=== PATIENT | female | born 1985 | race Caucasian/White ===

== ENCOUNTER 2018-07-21 15:55 | Inpatient (IN) ==
[2018-07-21] MEDS ORDERED: 0.9 % Sodium Chloride 1,000 ML IVC ONE (16:33)
[2018-07-21] MEDS ORDERED: Isovue-370 500 ML BOTTLE IVP ONE (16:35)
--- NOTE | 2018-07-21 16:37 | Emergency Department Note ---
Disposition Clinical Impression: Facial abscess, Phlegmon, Thyroid nodule Cellulitis Qualifiers: Site of cellulitis: face Qualified Code(s): L03.211 - Cellulitis of face Disposition: Admitted As Inpatient Referrals: Joselito Petit MD [Primary Care Provider] - Forms: ED Satisfaction Letter General Adult HPI - General Chief complaint: ED Skin/Abscess/Foreign Body Stated complaint: Facial Abscess Time Seen by Provider: 07/21/18 16:25 Source: patient Nursing Notes Reviewed: Yes Vital Signs Reviewed: Yes - History of Present Illness HPI Narrative: Patient is a 32-year-old female with past medical history including abscess and MRSA presenting with chief complaint of worsening right facial abscess. The patient states 5 days ago, she developed an abscess on the right face that is lateral to the right eye and does not involve the eye. She states she went to the emergency department the following day. She was prescribed Bactrim which she filled on Saturday. She had an incision and drainage. Over the weekend, despite the antibiotic or compresses, she describes worsening swelling that is now involving her eye. She complains of intermittent right visual loss. She states she feels like her neck also feels swollen and throat tightening up. She denies chest pain, shortness of breath, abdominal pain, does state she has had several episodes of nausea and vomiting. She went to her primary care physician yesterday had a repeat incision and drainage. She is presenting to the emergency department with worsening symptoms. Pain Scale: 7 - Related Data Home Medications Medication Instructions Recorded Confirmed traZODone [TraZODone] 50 mg PO PRN PRN 07/17/18 07/17/18 Previous Rx's Medication Instructions Recorded Sulfamethoxazole/Trimeth DS 1 each PO BID #20 tablet 07/17/18 [Bactrim DS] Allergies Allergy/AdvReac Type Severity Reaction Status Date / Time No Known Allergies Allergy Verified 06/23/18 12:40 All systems ED: reviewed and negative except as stated. Review of Systems: As Per HPI Constitutional: Denies: fever, chills Cardiovascular: Denies: chest pain, palpitations Respiratory: Denies: cough, dyspnea Gastrointestinal: Reports: nausea, vomiting. Denies: abdominal pain, diarrhea Genitourinary: Denies: dysuria Integumentary: Reports: other (abscess) Neurological: Denies: headache, weakness Past Medical History - Past Medical History Attestation: Yes The following information was validated with the patient. 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 - Social History Smoking Status: Never smoker Smokeless Tobacco Status: No Alcohol use: Reports: none Drug use: Reports: none Physical Exam - General Limitations: no limitations General appearance: alert, in no apparent distress - Head Head exam: atraumatic, normocephalic, normal inspection - Eye Eye exam: Present: normal appearance, PERRL, EOMI - ENT ENT exam: normal oropharynx, mucous membranes moist - Neck Neck exam: Present: normal inspection, trachea midline, other (Tenderness in the right submandibular region) - Chest Chest inspection: Present: normal inspection, symmetric chest wall rise - Respiratory Respiratory exam: Present: normal lung sounds bilaterally. Absent: respiratory distress, wheezes - Cardiovascular Cardiovascular exam: Present: normal rhythm, tachycardia, normal heart sounds - Abdominal Exam Abdominal exam: Present: soft, Non-Tender. Absent: distention, guarding - Extremities Exam Extremities exam: Present: normal inspection, normal capillary refill - Neurological Exam Neurological exam: Present: alert, oriented X3 - Psychiatric Psychiatric exam: Present: normal affect, normal mood - Skin Skin exam: Present: warm, other (3x3cm abscess lateral to the right eye with mild swelling of right eye, purulent drainage) Course Vital Signs Temperature 98.5 F 07/21/18 16:15 Pulse Rate 135 07/21/18 16:15 Respiratory Rate 18 07/21/18 16:15 Blood Pressure 93/62 07/21/18 16:15 O2 Sat by Pulse Oximetry 100 07/21/18 16:15 Temperature 98.5 F 07/21/18 16:15 Pulse Rate 87 07/21/18 18:26 Respiratory Rate 16 07/21/18 18:26 Blood Pressure 114/79 07/21/18 18:26 O2 Sat by Pulse Oximetry 100 07/21/18 18:26 Oxygen Delivery Oxygen Delivery Room Air Medical Decision Making - [facility] Narrative Medical decision making narrative: Patient is presenting with sinus tachycardia. She has a right facial abscess with intermittent right visual loss. She feels like her face is more swollen today. She had an IND of it twice in the past 5 days. Patient does not have visual loss at this time. She complains of painful extraocular movement. However they are intact. We will obtain CT orbits and CT soft tissue neck with contrast to further evaluate the extent of the abscess. We will obtain blood cultures, lactate, start the patient on IV fluids and vancomycin. basic lab work will also be obtained. 18:[address] with IV contrast is pending at this time. Patient will require admission for failing outpatient treatment. She will require IV antibiotics and possible ENT consult for incision and drainage of the facial abscess. 18:35 CT results reviewed. Patient has superficial cellulitis and subcutaneous overlying the right zygomatic arch. There is no discrete abscess. Patient also has an incidental 1.7 cm left thyroid nodule. Radiology recommending nonemergent follow-up thyroid ultrasound to further evaluate. There is no evidence of orbital abscess, septal cellulitis. Hospitalist has been consulted at this time for admission for failed outpatient treatment of cellulitis and abscess. As this is superficial infection, will not add other IV antibiotics at this time. 18:50 D/w Hospitalist who accepts admission - Medical Records Medical records reviewed: Yes I reviewed the patient's medical records. - Lab Data Lab results reviewed: Yes I reviewed the patient's lab results. Result diagrams: 07/21/18 16:47 07/21/18 16:47 Lab Results 07/21/18 07/21/18 07/21/18 Range/Units 16:47 16:47 16:47 WBC 5.3 (4.3-11.1) K/mcL RBC 4.44 (3.82-4.97) M/mcL Hgb 12.5 (11.5-15.4) g/dL Hct 39.5 (35.3-44.9) % MCV 89.0 (83.0-100.0) fL MCH 28.2 (28.0-33.3) pg MCHC 31.6 (31.6-35.5) g/dL RDW 12.9 (11.5-14.5) % Plt Count 192 (140-400) K/mcL MPV 9.6 (9.4-12.4) fL Immature Gran % 0.2 (0-4) % Seg Neutrophils % 79.9 % Lymphocytes % 10.7 % Monocytes % 7.8 % Eosinophils % 1.0 % Basophils % 0.4 % Neutrophils # 4.2 (1.6-8.9) K/mcL Lymphocytes # 0.6 (0.6-4.6) K/mcL Monocytes # 0.4 (0.0-1.3) K/mcL Eosinophils # 0.1 (0.0-0.6) K/mcL Basophils # 0.0 (0.0-0.2) K/mcL Sodium 139 (136-145) mEq/L Potassium 3.6 (3.5-5.1) mEq/L Chloride 102 (98-107) mEq/L Carbon Dioxide 24 (23-29) mEq/L BUN 8 (6-20) mg/dL Creatinine 1.01 (0.60-1.20) mg/dL Est GFR ( Amer) > 60 (> 60) Est GFR (Non-Af Amer) > 60 (> 60) BUN/Creatinine Ratio 8 (6-26) Glucose 86 (70-105) mg/dL Calculated Osmolality 286 (280-300) Lactic Acid 1.0 (0.5-2.2) mmol/L Calcium 9.4 (8.6-10.3) mg/dL Magnesium 1.7 (1.6-2.6) mg/dL Total Bilirubin 0.5 (0.3-1.0) mg/dL Direct Bilirubin 0.1 (0.0-0.2) mg/dL Indirect Bilirubin 0.4 (0.0-1.2) mg/dL AST 25 (13-39) Units/L ALT 26 (7-52) Units/L Alkaline Phosphatase 114 H (34-104) Units/L Troponin I < 0.03 (< 0.04) ng/mL Serum Total Protein 7.0 (6.4-8.9) g/dL Albumin 4.1 (3.5-5.7) g/dL Globulin 2.9 (2.4-3.5) g/dL Albumin/Globulin Ratio 1.4 (1.1-2.2) - Radiology Data Radiology results reviewed: Yes I reviewed the patient's radiology results. Soft Tissue Neck CT 07/21/18 16:35 IMPRESSION: 1. Findings of superficial cellulitis and subcutaneous phlegmon overlying the right zygomatic arch. No discrete abscess. 2. 1.7 cm left thyroid nodule. Nonemergent follow-up thyroid ultrasound is recommended for further evaluation per guidelines below. RECOMMENDATIONS: 1.7 cm incidental thyroid nodule Recommend thyroid US. Reference: J Am Sandip Radiol. 2015 May;12(2): 143-50 D/ / Ean Smith / Ean Smith Interpreting Provider: Ean Smith - EKG Data EKG #1 EKG attestation: Yes I reviewed and interpreted this EKG. EKG results narrative: EKG obtained at 1632 shows sinus tachycardia with heart rate 112, QRS duration 86, KS interval 186, QTC of 436. No ST elevation or depression. T-wave inversion in lead 3. Compared to old EKG from 08/04/2016 which shows no acute changes at that time.
--- NOTE | 2018-07-21 16:45 | Emergency Department Note ---
Disposition Clinical Impression: Facial abscess, Phlegmon, Thyroid nodule Cellulitis Qualifiers: Site of cellulitis: face Qualified Code(s): L03.211 - Cellulitis of face Disposition: Admitted As Inpatient Condition: Fair Referrals: Joselito Petit MD [Primary Care Provider] - Forms: ED Satisfaction Letter General Adult HPI - General Chief complaint: ED Skin/Abscess/Foreign Body Stated complaint: Facial Abscess Time Seen by Provider: 07/21/18 16:25 Source: patient Nursing Notes Reviewed: Yes Vital Signs Reviewed: Yes - History of Present Illness Pain Scale: 7 - Related Data Home Medications Medication Instructions Recorded Confirmed traZODone [TraZODone] 50 mg PO PRN PRN 07/17/18 07/17/18 Previous Rx's Medication Instructions Recorded Sulfamethoxazole/Trimeth DS 1 each PO BID #20 tablet 07/17/18 [Bactrim DS] Allergies Allergy/AdvReac Type Severity Reaction Status Date / Time No Known Allergies Allergy Verified 06/23/18 12:40 Past Medical History - Past Medical History Medical history: Reports: GERD, migraine, renal disease Surgical history: Reports: other 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 history: Reports: anxiety, depression 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 , 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 - Social History Smoking Status: Never smoker Smokeless Tobacco Status: No Alcohol use: Reports: none Drug use: Reports: none Physical Exam - General General appearance: alert, in no apparent distress Course Vital Signs Temperature 98.5 F 07/21/18 16:15 Pulse Rate 135 07/21/18 16:15 Respiratory Rate 18 07/21/18 16:15 Blood Pressure 93/62 07/21/18 16:15 O2 Sat by Pulse Oximetry 100 07/21/18 16:15 Temperature 98.5 F 07/21/18 16:15 Pulse Rate 87 07/21/18 18:26 Respiratory Rate 16 07/21/18 18:26 Blood Pressure 114/79 07/21/18 18:26 O2 Sat by Pulse Oximetry 100 07/21/18 18:26 Oxygen Delivery Oxygen Delivery Room Air Medical Decision Making - MDM Narrative Medical decision making narrative: Soft Tissue Neck CT 07/21/18 16:35 IMPRESSION: 1. Findings of superficial cellulitis and subcutaneous phlegmon overlying the right zygomatic arch. No discrete abscess. 2. 1.7 cm left thyroid nodule. Nonemergent follow-up thyroid ultrasound is recommended for further evaluation per guidelines below. RECOMMENDATIONS: 1.7 cm incidental thyroid nodule Recommend thyroid US. Reference: J Am Sandip Radiol. 2015 May;12(2): 143-50 D/ / Ean Smith / Ean Smith Interpreting Provider: Ean Smith 1836 hrs.: Patient's CT is back she still cellulitis but no orbital cellulitis or negative and bring her into the hospital so she has failed outpatient treatment start her on vancomycin which she has got running here and then she also has a nodule on her thyroid may need ultrasound while she is inpatient. 1850 hrs.: Hospitalist agreed to bring the patient into the hospital she has get her IV vancomycin running a patient's agreement with staying. - Lab Data Result diagrams: 07/21/18 16:47 07/21/18 16:47 Lab Results 07/21/18 07/21/18 07/21/18 Range/Units 16:47 16:47 16:47 WBC 5.3 (4.3-11.1) K/mcL RBC 4.44 (3.82-4.97) M/mcL Hgb 12.5 (11.5-15.4) g/dL Hct 39.5 (35.3-44.9) % MCV 89.0 (83.0-100.0) fL MCH 28.2 (28.0-33.3) pg MCHC 31.6 (31.6-35.5) g/dL RDW 12.9 (11.5-14.5) % Plt Count 192 (140-400) K/mcL MPV 9.6 (9.4-12.4) fL Immature Gran % 0.2 (0-4) % Seg Neutrophils % 79.9 % Lymphocytes % 10.7 % Monocytes % 7.8 % Eosinophils % 1.0 % Basophils % 0.4 % Neutrophils # 4.2 (1.6-8.9) K/mcL Lymphocytes # 0.6 (0.6-4.6) K/mcL Monocytes # 0.4 (0.0-1.3) K/mcL Eosinophils # 0.1 (0.0-0.6) K/mcL Basophils # 0.0 (0.0-0.2) K/mcL Sodium 139 (136-145) mEq/L Potassium 3.6 (3.5-5.1) mEq/L Chloride 102 (98-107) mEq/L Carbon Dioxide 24 (23-29) mEq/L BUN 8 (6-20) mg/dL Creatinine 1.01 (0.60-1.20) mg/dL Est GFR ( Amer) > 60 (> 60) Est GFR (Non-Af Amer) > 60 (> 60) BUN/Creatinine Ratio 8 (6-26) Glucose 86 (70-105) mg/dL Calculated Osmolality 286 (280-300) Lactic Acid 1.0 (0.5-2.2) mmol/L Calcium 9.4 (8.6-10.3) mg/dL Magnesium 1.7 (1.6-2.6) mg/dL Total Bilirubin 0.5 (0.3-1.0) mg/dL Direct Bilirubin 0.1 (0.0-0.2) mg/dL Indirect Bilirubin 0.4 (0.0-1.2) mg/dL AST 25 (13-39) Units/L ALT 26 (7-52) Units/L Alkaline Phosphatase 114 H (34-104) Units/L Troponin I < 0.03 (< 0.04) ng/mL Serum Total Protein 7.0 (6.4-8.9) g/dL Albumin 4.1 (3.5-5.7) g/dL Globulin 2.9 (2.4-3.5) g/dL Albumin/Globulin Ratio 1.4 (1.1-2.2) Attestation Statement - Attestation Attestation: This documentation is done with the assistance of Dragon dictation. Despite efforts made to ensure accuracy, there may be inaccuracies in scale clerk or spelling and typographical errors. I examined this patient and my medical decision-making was reviewed with the Resident Physician. I agree with the documented findings, disposition and treatment plan as described except to the extent set forth below. Patient seen and evaluated today by Dr. Gonzales and myself, I agree with her evaluation and management plan, I supervised the care the patient's stay. Patient presents wi th an abscess to the right side of her face this is lateral to the orbit does not involve the eye itself. She had an I&D and she has been on Bactrim. She has not missed any doses but she is getting redness underneath her right eye with pain with movement. She is also feels like she is getting swelling going down the right side of her neck. She has a normal airway she has no drooling or stridor. Supple neck no meningeal signs. Were negative CT of her orbit and soft tissues of the neck started on vancomycin labs and then she will most likely need admission.
[2018-07-21 17:12] LABS: Basophils % 0.4 %; Eosinophils # 0.1 K/mcL (0.0-0.6); Hematocrit 39.5 % (35.3-44.9); Hemoglobin 12.5 g/dL (11.5-15.4); Immature Granulocytes % 0.2 % (0-4); Lymphocytes # 0.6 K/mcL (0.6-4.6); Lymphocytes % 10.7 %; Mean Corpuscular HGB Conc 31.6 g/dL (31.6-35.5); Mean Corpuscular Hemoglobin 28.2 pg (28.0-33.3); Mean Platelet Volume 9.6 fL (9.4-12.4); Monocytes # 0.4 K/mcL (0.0-1.3); Monocytes % 7.8 %; Neutrophils # 4.2 K/mcL (1.6-8.9); Platelet Count 192 K/mcL (140-400); Red Blood Count 4.44 M/mcL (3.82-4.97); Red Cell Distribution Width 12.9 % (11.5-14.5); Segmented Neutrophils % 79.9 %
[2018-07-21 17:24] LABS: Alanine Aminotransferase 26 Units/L (7-52); Albumin 4.1 g/dL (3.5-5.7); Albumin/Globulin Ratio 1.4 (1.1-2.2); Alkaline Phosphatase 114 Units/L (34-104); Aspartate Amino Transferase 25 Units/L (13-39); BUN/Creatinine Ratio 8 (6-26); Bilirubin,Direct 0.1 mg/dL (0.0-0.2); Bilirubin,Indirect 0.4 mg/dL (0.0-1.2); Bilirubin,Total 0.5 mg/dL (0.3-1.0); Blood Urea Nitrogen 8 mg/dL (6-20); Calcium 9.4 mg/dL (8.6-10.3); Carbon Dioxide 24 mEq/L (23-29); Chloride 102 mEq/L (98-107); Globulin 2.9 g/dL (2.4-3.5); Glucose 86 mg/dL (70-105); Magnesium 1.7 mg/dL (1.6-2.6); Osmolality,Calculated 286 (280-300); Potassium 3.6 mEq/L (3.5-5.1); Sodium 139 mEq/L (136-145); Troponin I < 0.03 ng/mL (< 0.04); eGFR For Non-African Americans > 60 (> 60)
[2018-07-21 19:13] LABS: Bilirubin,Urine Negative (Negative); Blood,Urine Negative (Negative); Clarity,Urine Clear (Clear); Color,Urine Yellow (Yellow); Glucose,Urine (UA) Normal (Normal); Ketones,Urine Negative (Negative); Leukocyte Esterase,Urine Negative (Negative); Nitrite,Urine Negative (Negative); Protein,Urine Negative (Neg-Trace); Specific Gravity,Urine 1.016 (1.010-1.025); Urobilinogen,Urine Normal (Normal)
[2018-07-21] MEDS ORDERED: Ondansetron 4 MG/2 ML VIAL IVP PRN (22:23)
[2018-07-21] MEDS ORDERED: Naloxone 0.4 MG/ML INJ IVP PRN (22:23)
[2018-07-21] MEDS ORDERED: traZODone 50 MG TABLET PO PRN (22:28)
--- NOTE | 2018-07-21 22:41 | Internal Med History&Physical ---
Date of Encounter: 07/21/18 Time of Encounter: 20:40 Internal Medicine - H&P: HPI Chief complaint: facial abscess/cellulitis Admitted From: Emergency Dept Plans for Post Hospital Care: Home History of present illness: Ms. Castro is a 32 year old female who presents to the ER today for the third time in the last several days for concerns of right-sided facial cellulitis and abscess. She was treated conservatively with oral Bactrim and incision and drainage on the second ER visit. Since then, however, symptoms worsened and she had worsening cellulitis as well as swelling of her right eyelid. Workup in ER revealed patient to have a draining abscess on her right cheek area. CT of the neck/soft tissues was obtained, which revealed a phlegmon but not a confirmed abscess. Irregardless, with the drainage, she was feeling better and her faical edema has subsided. Because of failed outpatient treatment, she was admitted to hospitalist service. Upon my assessment of the patient, she and her family confirm the above history. She has a prior history of MRSA skin abscesses about 5 years ago. Regarding this episode, she states she had a pimple on her right cheek that she and her tried to pop the other day. This subsequently became infected over the next 24 hours leading to facial cellulitis and then suspected abscess. She has had low-grade fevers at home, but she denies any chills or night sweats. She denies any cough, sore throat, vomiting, or diarrhea. She did have swelling of her right eyelid earlier today but it is improved and mostly resolved. She denies any vision changes or any sinus congestion. Past Med Surg Social Fam HX - Past Medical History Attestation: Yes The following information was validated with the patient. Source: patient, old records reviewed, obtained from family Medical history: GERD, migraine, renal disease Additional medical history: Pt reports kidney failure in 2014 Psychiatric history: anxiety, depression - Past Surgical History Surgical History: other Additional surgical history: tubal ligation - Social History Smoking Status: Never smoker Smokeless Tobacco Status: No Alcohol use: none Drug use: none Current living situation: Home, With Family Activity Level: Independent ambulation Recent Out of Country Travel Within the Last 8 Weeks: No - Family History Mother Living Status: Still Living Hx Family Cardiac Disorders: Yes Hx Family Respiratory Disorders: No Hx Family Cancer: Yes Hx Family GI Disorders: No Hx Family Endocrine Disorder: Yes Hx Family Neuromuscular Disorders: No Hx Family Neurologic Disorders: No Hx Family HEENT Disorders: No Hx Family Autoimmune Disorders: No Internal Medicine - H&P: Meds Sulfamethoxazole/Trimeth DS [Bactrim DS] 1 each PO BID #20 tablet 07/17/18 [Rx] traZODone [TraZODone] 150 mg PO PRN PRN 07/17/18 [History] CarBAMazepine [Equetro] 400 mg PO BID 07/21/18 [History] Ibuprofen 800 mg PO PRN PRN MDD TID 07/21/18 [History] Pantoprazole 40 mg PO DAILY 07/21/18 [History] Allergy/AdvReac Type Severity Reaction Status Date / Time No Known Allergies Allergy Verified 06/23/18 12:40 - Constitutional Constitutional: fever(s), no chills, no night sweats - EENT Eyes: no blurry vision, no change in vision, no diplopia, no discharge, no photophobia Ears: no ear pain, no tinnitus Nose, mouth and throat: no nasal congestion, no sinus pain, no sinus pressure, no sore throat - Cardiovascular Cardiovascular ROS IM: no chest pain, no dyspnea - Respiratory Respiratory: no cough, no hemoptysis, no chest congestion, no excessive phlegm production - Gastrointestinal Gastrointestinal: no abdominal pain, no diarrhea, no hematemesis, no hematochezia, no melena, no vomiting - Genitourinary Genitourinary: no dysuria, no flank pain, no hematuria - Musculoskeletal Musculoskeletal ROS IM: no arthralgias, no back pain - Integumentary Integumentary IM: sores (right cheek area concerning for abscess) - Neurological Neurological ROS: no dizziness, no focal weakness, no frequent falls, no headache(s) - Psychiatric Psychiatric: anxiety, no depression - Endocrine Endocrine IM: no polydipsia, no polyuria - Allergic/Immunologic Allergic/Immunologic: no wheezing, no GI upset with certain foods - Constitutional Vitals: Temp Pulse Resp BP Pulse Ox 98.5 F 87 16 119/79 100 07/21/18 16:15 07/21/18 18:26 07/21/18 21:01 07/21/18 21:01 07/21/18 18:26 General appearance: Present: cooperative, mild distress, A&O X 3, pleasant, answers questions appropriately Exam: see below - Head Head exam: Present: atraumatic, normal inspection - Eye Eye exam: Present: EOMI, PERRL. Absent: scleral icterus Pupils: Present: normal accommodation - ENT ENT exam: Present: mucous membranes dry, normal exam, normal oropharynx - Neck Neck exam general surgery: Present: full ROM, supple, trachea midline. Absent: lymphadenopathy, tenderness, nuchal rigidity, thyromegaly - Respiratory Respiratory exam: Present: CTAB. Absent: chest wall tenderness, rales, rhonchi, wheezes - Cardiovascular Cardiovascular exam: Present: RRR, +S1, +S2. Absent: diastolic murmur, systolic murmur - GI/Abdominal GI/Abdominal exam: Present: normal bowel sounds, soft. Absent: guarding, hepatomegaly, mass, rebound, splenomegaly, tenderness - Extremities Exam Extremities exam: Present: full ROM, normal capillary refill, warm, radial pulses palpable and symmetrical. Absent: calf tenderness, pedal edema, tenderness - Back Exam Back exam: Present: normal inspection. Absent: CVA tenderness (L), CVA tenderness (R) - Neurological Exam Neurological exam: Present: alert, CN II-XII intact, oriented X3, no focal deficits, strengths equal and symetr throughout - Psychiatric Psychiatric exam: Present: normal affect, normal mood - Skin Skin exam: Present: dry, intact, warm Additional comments: draining abscess/phlegmon along right cheek area on the lateral aspect with mild surrounding redness/edema; both eyelids and periorbital areas normal and without redness/edema Internal Med - H&P Results - Labs CBC & Chem 7: 07/21/18 16:47 07/21/18 16:47 Labs: Short CBC 07/21/18 Range/Units 16:47 WBC 5.3 (4.3-11.1) K/mcL Hgb 12.5 (11.5-15.4) g/dL Hct 39.5 (35.3-44.9) % Plt Count 192 (140-400) K/mcL Neutrophils # 4.2 (1.6-8.9) K/mcL BMP 07/21/18 16:47 Sodium 139 Potassium 3.6 Chloride 102 Carbon Dioxide 24 BUN 8 Creatinine 1.01 Glucose 86 Calcium 9.4 Cardiac Enzymes 04/22/19 Range/Units 16:47 Troponin I < 0.03 (< 0.04) ng/mL Liver Function 07/21/18 Range/Units 16:47 Total Bilirubin 0.5 (0.3-1.0) mg/dL Direct Bilirubin 0.1 (0.0-0.2) mg/dL AST 25 (13-39) Units/L ALT 26 (7-52) Units/L Alkaline Phosphatase 114 H (34-104) Units/L Albumin 4.1 (3.5-5.7) g/dL Urine 07/21/18 Range/Units 19:03 Urine Color Yellow (Yellow) Urine Clarity Clear (Clear) Urine pH 6.0 (5.0-8.0) pH Units Ur Specific [place] 1.016 (1.010-1.025) Urine Protein Negative (Neg-Trace) mg/dL Urine Glucose (UA) Normal (Normal) mg/dL - Impressions ITS Impressions Soft Tissue Neck CT 07/21/18 16:35 IMPRESSION: 1. Findings of superficial cellulitis and subcutaneous phlegmon overlying the right zygomatic arch. No discrete abscess. 2. 1.7 cm left thyroid nodule. Nonemergent follow-up thyroid ultrasound is recommended for further evaluation per guidelines below. RECOMMENDATIONS: 1.7 cm incidental thyroid nodule Recommend thyroid US. Reference: J Am Sandip Radiol. 2015 May;12(2): 143-50 D/ / Ean Smith / Ean Smith Interpreting Provider: Ean Smith - Diagnostic Studies Other Images Status: image reviewed by me (CT soft tissues neck -- viewed images and report) - Assessment and Plan (1) Abscess of face Current Visit: Yes Status: Acute Assessment and plan: 1. I asked CORE STACKER to obtain and send culture of draining abscess. 2. Will order IV Vancomycin and Zosyn to cover MRSA and typical skin jai. 3. Contact precautions. 4. De-escalate antibiotics when culture results obtained. 5. Vancomycin dosing per pharmacy. 6. IVF hydration to protect kidney function given prior history of [place] with Vancomycin. 7. Patient failed outpatient conservative treatment with Bactrim. 8. May need ENT consult if fails to improve. (2) Cellulitis Current Visit: Yes Status: Acute Assessment and plan: 1. IV antibiotics as above. 2. Monitor clinically. Qualifiers: Site of cellulitis: face Qualified Code(s): L03.211 - Cellulitis of face (3) Thyroid nodule Current Visit: Yes Status: Acute Assessment and plan: 1. Will order thyroid ultrasound and TFT's. (4) DVT prophylaxis Current Visit: Yes Status: Acute Assessment and plan: 1. Heparin SQ.
[2018-07-21] MEDS ORDERED: Ibuprofen 400 MG TABLET PO PRN (22:55)
[2018-07-21] MEDS: 0.9 % Sodium Chloride w KCl 20 MEQ/1,000 ML MLS IVC SCH (23:37)
[2018-07-21] MEDS: Piperacillin/Tazobactam 3.375 GM in 0.9 % Sodium Chloride Mini Bag 100 ML IVPB SCH (23:38)
[2018-07-21] MEDS: Acetaminophen 325 MG TABLET PO PRN (23:40)
[2018-07-22] MEDS: Acetaminophen 325 MG TABLET PO PRN (05:22)
[2018-07-22] MEDS: *HR* Heparin 5,000 UNIT/ML VIAL SQ SCH ×2 (05:23→18:01)
[2018-07-22] MEDS ORDERED: 0.9 % Sodium Chloride 500 ML IVC ONE (05:26)
[2018-07-22 06:43] LABS: Basophils % 0.6 %; Eosinophils % 0.6 %; Hematocrit 32.6 % (35.3-44.9); Immature Granulocytes % 0.3 % (0-4); Lymphocytes # 0.6 K/mcL (0.6-4.6); Lymphocytes % 18.3 %; Mean Corpuscular HGB Conc 31.3 g/dL (31.6-35.5); Mean Corpuscular Hemoglobin 27.6 pg (28.0-33.3); Mean Corpuscular Volume 88.1 fL (83.0-100.0); Mean Platelet Volume 9.9 fL (9.4-12.4); Monocytes # 0.5 K/mcL (0.0-1.3); Monocytes % 13.9 %; Neutrophils # 2.3 K/mcL (1.6-8.9); Platelet Count 150 K/mcL (140-400); Segmented Neutrophils % 66.3 %
[2018-07-22 06:44] LABS: Hemoglobin 10.2 g/dL (11.5-15.4)
[2018-07-22 07:03] LABS: Alanine Aminotransferase 19 Units/L (7-52); Albumin 3.2 g/dL (3.5-5.7); Albumin/Globulin Ratio 1.3 (1.1-2.2); Alkaline Phosphatase 98 Units/L (34-104); Aspartate Amino Transferase 17 Units/L (13-39); BUN/Creatinine Ratio 8 (6-26); Bilirubin,Total 0.3 mg/dL (0.3-1.0); Blood Urea Nitrogen 7 mg/dL (6-20); Calcium 7.9 mg/dL (8.6-10.3); Carbon Dioxide 22 mEq/L (23-29); Chloride 110 mEq/L (98-107); Globulin 2.4 g/dL (2.4-3.5); Glucose 114 mg/dL (70-105); Osmolality,Calculated 283 (280-300); Potassium 3.8 mEq/L (3.5-5.1); Sodium 137 mEq/L (136-145); Total Protein 5.6 g/dL (6.4-8.9); eGFR For Non-African Americans > 60 (> 60)
[2018-07-22] MEDS: 0.9 % Sodium Chloride w KCl 20 MEQ/1,000 ML MLS IVC SCH (08:32)
[2018-07-22] MEDS: Piperacillin/Tazobactam 3.375 GM in 0.9 % Sodium Chloride Mini Bag 100 ML IVPB SCH ×3 (08:33→23:43)
[2018-07-22] MEDS: carBAMazepine 200 MG TABLET PO SCH ×2 (08:35→19:53)
[2018-07-22] MEDS ORDERED: traZODone 50 MG TABLET PO PRN (13:23)
--- NOTE | 2018-07-22 14:28 | Internal Med Progress Note ---
Hospitalist Progress Note - Encounter Date of Encounter: 07/22/18 Time of Encounter: 14:26 - Subjective Interval History: Patient lying comfortably in bed. Better facial pain and swelling. Review the lab with trending down white count-pancytopenia like picture. Family at bedside. Better blood pressure Denies fever chills nausea vomiting headache dizziness chest pain shortness of breath abdominal pain diarrhea urinary complaint - Exam Vitals: Temp Pulse Resp BP Pulse Ox 97.8 F 65 16 112/73 99 07/22/18 10:30 07/22/18 10:30 07/22/18 10:30 07/22/18 10:30 07/22/18 10:30 Exam: General appearance: No acute distress, A&O X 3 Head exam: Atraumatic Eye exam: EOMI, PERRLA ENT exam: Moist oral mucosa Neck nontender, supple Respiratory exam: Clear to auscultation bilaterally Cardiovascular exam: Regular rate and rhythm, no systolic murmur Abdominal exam: Soft, nontender, nondistended, positive bowel sounds Extremities exam: No calf tenderness, no pedal edema Present: Skin-: A small almost 0.5 cm round opening with no active draining pus /with s urrounding erythema without fluctuance, over the right cheek area on the lateral aspect. Right upper eyelid appear puffy but periorbitally area normal and without redness edema. Neurological exam: Alert, awake, oriented 3, CN II-XII intact, no focal deficits. No facial droop. Normal speech. - Assessment and Plan (1) Abscess of face Current Visit: Yes Status: Acute Assessment and Plan: Failed outpatient treatment with Bactrim. Started IV vancomycin and Zosyn in the ER-will continue for now. Wound culture and blood culture with no growth yet. Clinically better with trending down White count with no fever overnight. Patient is improving therefore will continue IV antibiotic. If any concern then will consult ENT specialist. Continue contact precaution. (2) Cellulitis Current Visit: Yes Status: Acute Assessment and Plan: As mentioned above (3) Thyroid nodule Current Visit: Yes Status: Acute Assessment and Plan: Incidental finding on CT neck. Ordered thyroid ultrasound and TFT's- pending (4) DVT prophylaxis Current Visit: Yes Status: Acute Assessment and Plan: 1. Heparin SQ. - Time Spent with Patient Total time spent is greater than 50% in coordination of care (as documented) at patient's floor/unit and/or counseling patient: 25 - 35 minutes Plan of Care Discussed with: patient Internal Medicine: Result - Labs CBC & Chem 7: 07/22/18 06:20 07/22/18 06:20 Labs: Short CBC 07/21/18 07/22/18 Range/Units 16:47 06:20 WBC 5.3 3.5 L (4.3-11.1) K/mcL Hgb 12.5 10.2 L D (11.5-15.4) g/dL Hct 39.5 32.6 L (35.3-44.9) % Plt Count 192 150 (140-400) K/mcL Neutrophils # 4.2 2.3 (1.6-8.9) K/mcL BMP 07/21/18 07/22/18 16:47 06:20 Sodium 139 137 Potassium 3.6 3.8 Chloride 102 110 H Carbon Dioxide 24 22 L BUN 8 7 Creatinine 1.01 0.83 Glucose 86 114 H Calcium 9.4 7.9 L Cardiac Enzymes 07/21/18 Range/Units 16:47 Troponin I < 0.03 (< 0.04) ng/mL Liver Function 07/21/18 07/22/18 Range/Units 16:47 06:20 Total Bilirubin 0.5 0.3 (0.3-1.0) mg/dL Direct Bilirubin 0.1 (0.0-0.2) mg/dL AST 25 17 (13-39) Units/L ALT 26 19 (7-52) Units/L Alkaline Phosphatase 114 H 98 (34-104) Units/L Albumin 4.1 3.2 L (3.5-5.7) g/dL Urine 07/21/18 Range/Units 19:03 Urine Color Yellow (Yellow) Urine Clarity Clear (Clear) Urine pH 6.0 (5.0-8.0) pH Units Ur Specific [place] 1.016 (1.010-1.025) Urine Protein Negative (Neg-Trace) mg/dL Urine Glucose (UA) Normal (Normal) mg/dL - Impressions Impressions Soft Tissue Neck CT 07/21/18 16:35 IMPRESSION: 1. Findings of superficial cellulitis and subcutaneous phlegmon overlying the right zygomatic arch. No discrete abscess. 2. 1.7 cm left thyroid nodule. Nonemergent follow-up thyroid ultrasound is recommended for further evaluation per guidelines below. RECOMMENDATIONS: 1.7 cm incidental thyroid nodule Recommend thyroid US. Reference: J Am Sandip Radiol. 2015 May;12(2): 143-50 D/ / Ean Smith / Ean Smith Interpreting Provider: Ean Smith Consult Discharge Plan - Plan Referrals: Joselito Petit MD [Primary Care Provider] - (2) Cellulitis Qualifiers: Site of cellulitis: face Qualified Code(s): L03.211 - Cellulitis of face
--- NOTE | 2018-07-22 16:17 | Electrocardiograph Report ---
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
[2018-07-23] MEDS: *HR* Heparin 5,000 UNIT/ML VIAL SQ SCH (06:33)
[2018-07-23 06:59] VITALS: BP 125/82
--- NOTE | 2018-07-23 08:07 | ENT - Consult Note ---
<Sandra Hernandez Mary - Last Filed: 07/23/18 16:01> Date of Encounter: 07/23/18 Time of Encounter: 07:45 Assessment and Plan (1) Abscess of face Status: Acute Patient seen and examined at bedside this A.M. No areas of fluctuance or drainable abscess to right face. Area currently spontaneously draining. No further ENT intervention warranted at this time. Recommend continued antibiotics and mupirocin ointment. All questions answered. History of Present Illness Consult date: 07/23/18 Reason for ENT Consult: other (facial abscess) Requesting physician: Marni Jon History of present illness: Ms. Castro is a 32 year old female who was admitted for right facial cellulitis. Patient had pertinent PMH of previous MRSA positive facial abscess several years ago. Patient was seen multiple times over the course of the last week for complaint of right facial swelling and pain, which patient reports began last , with failed outpatient oral antibiotic therapy with Bactrim. Patient had I&D performed in ER on Saturday (07/20/18) and was admitted f or observation and IV antibiotics. Patient reports area has been spontaneously draining since initial I&D was completed. CT of the neck/soft tissues was obtained upon initial admission, which demonstrated superficial cellulitis and subcutaneous phlegmon overlying the right zygomatic arch. No discrete abscess. ENT was consulted for evaluation of the area and possible I&D if necessary. Past Med Surg Social Fam HX - Past Medical History Medical history: GERD, migraine, renal disease Additional medical history: Pt reports kidney failure in 2013 Psychiatric history: anxiety, depression - Past Surgical History Surgical History: other Additional surgical history: tubal ligation - Social History Smoking Status: Never smoker Smokeless Tobacco Status: No Alcohol use: none Drug use: none - Family History Mother Living Status: Still Living Hx Family Cardiac Disorders: Yes Hx Family Respiratory Disorders: No Hx Family Cancer: Yes Hx Family GI Disorders: No Hx Family Endocrine Disorder: Yes Hx Family Neuromuscular Disorders: No Hx Family Neurologic Disorders: No Hx Family HEENT Disorders: No Hx Family Autoimmune Disorders: No Medications and Allergies Ibuprofen [Ibu] 800 mg PO TID PRN 07/21/18 [History] Pantoprazole Sodium [Protonix] 40 mg PO DAILY 07/21/18 [History] Sucralfate [Carafate] 10 ml PO QID PRN 07/21/18 [History] Trazodone HCl 150 mg PO HS PRN 07/21/18 [History] carBAMazepine [Tegretol] 400 mg PO BID 07/21/18 [History] DiphenhydraMINE [Benadryl] 25 mg PO Q6HR PRN 3 Days #18 capsule 07/23/18 [Rx] Doxycycline 100 mg PO BID 5 Days #10 capsule 07/23/18 [Rx] Mupirocin 1 gm TP TID 7 Days #1 oin.pf.florian 07/23/18 [Rx] Allergy/AdvReac Type Severity Reaction Status Date / Time No Known Allergies Allergy Verified 07/21/18 22:44 ENT - ROS - EENT Nose, mouth and throat: facial pain, other (right facial abscess with swelling) ENT Exam Initial Vital Signs Temp Pulse Resp BP Pulse Ox 98.5 F 135 18 93/62 100 07/21/18 16:15 07/21/18 16:15 07/21/18 16:15 07/21/18 16:15 07/21/18 16:15 Exam Initial Vital Signs Temp Pulse Resp BP Pulse Ox 98.5 F 135 18 93/62 100 07/21/18 16:15 07/21/18 16:15 07/21/18 16:15 07/21/18 16:15 07/21/18 16:15 - General physical appearance well developed, well nourished, no distress - Eyes PERRL, normal ocular movement - ENT normal pinna, normal nares, normal mucosa, Other (EARS: EAC'S clear bilaterally, TM's normal bilaterally. NOSE: nares patent bilaterally, nasal mucosa moist, inferior turbinate hypertrophy bilaterally. ) - Neck trachea midline, no lymphadectomy - Respiratory normal expansion, normal respiratory effort - Integumentary other (superficial induration noted to right side of face area of zygomatic region, no fluctuance palpated, central area open and draining serous fluid at this time. ) - Neurologic CN 2-12 grossly intact, normal coordination, normal sensation - Psychiatric oriented to time, oriented to person, oriented to place, speech is normal Results - Labs 07/22/18 06:20 07/22/18 06:20 Abnormal lab results WBC 3.5 K/mcL (4.3-11.1) L 07/22/18 06:20 RBC 3.70 M/mcL (3.82-4.97) L 07/22/18 06:20 Hgb 10.2 g/dL (11.5-15.4) L D 07/22/18 06:20 Hct 32.6 % (35.3-44.9) L 07/22/18 06:20 MCH 27.6 pg (28.0-33.3) L 07/22/18 06:20 MCHC 31.3 g/dL (31.6-35.5) L 07/22/18 06:20 Chloride 110 mEq/L (98-107) H 07/22/18 06:20 Carbon Dioxide 22 mEq/L (23-29) L 07/22/18 06:20 Glucose 114 mg/dL (70-105) H 07/22/18 06:20 Calcium 7.9 mg/dL (8.6-10.3) L 07/22/18 06:20 Serum Total Protein 5.6 g/dL (6.4-8.9) L 07/22/18 06:20 Albumin 3.2 g/dL (3.5-5.7) L 07/22/18 06:20 All other labs normal. Consult Discharge Plan - Plan Instructions: Cellulitis (DC) Referrals: Joselito Petit MD [Primary Care Provider] - 07/29/18 11:30 am Prescriptions: DiphenhydraMINE [Benadryl] 25 mg PO Q6HR PRN 3 Days #18 capsule PRN Reason: Itching Doxycycline 100 mg PO BID 5 Days #10 capsule Mupirocin 1 gm TP TID 7 Days #1 oin.pf.florian <Merle Bermudez - Last Filed: 07/23/18 16:39> Date of Encounter: 07/23/18 Assessment and Plan (1) Abscess of face Status: Acute ENT Exam Initial Vital Signs Temp Pulse Resp BP Pulse Ox 98.5 F 135 18 93/62 100 07/21/18 16:15 07/21/18 16:15 07/21/18 16:15 07/21/18 16:15 07/21/18 16:15 Exam Initial Vital Signs Temp Pulse Resp BP Pulse Ox 98.5 F 135 18 93/62 100 07/21/18 16:15 07/21/18 16:15 07/21/18 16:15 07/21/18 16:15 07/21/18 16:15 Results - Labs 07/22/18 06:20 07/22/18 06:20 Abnormal lab results WBC 3.5 K/mcL (4.3-11.1) L 07/22/18 06:20 RBC 3.70 M/mcL (3.82-4.97) L 07/22/18 06:20 Hgb 10.2 g/dL (11.5-15.4) L D 07/22/18 06:20 Hct 32.6 % (35.3-44.9) L 07/22/18 06:20 MCH 27.6 pg (28.0-33.3) L 07/22/18 06:20 MCHC 31.3 g/dL (31.6-35.5) L 07/22/18 06:20 Chloride 110 mEq/L (98-107) H 07/22/18 06:20 Carbon Dioxide 22 mEq/L (23-29) L 07/22/18 06:20 Glucose 114 mg/dL (70-105) H 07/22/18 06:20 Calcium 7.9 mg/dL (8.6-10.3) L 07/22/18 06:20 Serum Total Protein 5.6 g/dL (6.4-8.9) L 07/22/18 06:20 Albumin 3.2 g/dL (3.5-5.7) L 07/22/18 06:20 All other labs normal. - Attending Attestation The history, physical exam, and medical decision making was performed by myself in conjunction with the nurse practioner who saw the patient at the bedside. I was physically present and actively performed the examination together we discussed medical decision making. I have verified the accuracy of the Nurse practioners documentation with regards to communicating my history, physical exam findings, and medical decision making.
[2018-07-23] MEDS: carBAMazepine 200 MG TABLET PO SCH (08:52)
[2018-07-23] MEDS ORDERED: Doxycycline 100 MG CAPSULE PO SCH (09:30)
--- NOTE | 2018-07-23 11:06 | Discharge Summary ---
- NOTES TO OUTPATIENT PROVIDER Notes to Outpatient Provider: Completed a course of doxycycline and mupirocin ointment. One-year outpatient US thyroid for incidental left thyroid nodule Orders not resulted at time of discharge: Pending orders 07/21/18 16:44 Culture,Blood [BC] Stat 07/21/18 21:33 Culture,Wound [RM] Stat Date of Encounter: 07/23/18 Time of Encounter: 08:50 - Discharge Diagnosis (1) Abscess of face Priority: Secondary Status: Acute (2) Cellulitis Priority: Primary Status: Acute Qualifiers: Site of cellulitis: face Qualified Code(s): L03.211 - Cellulitis of face (3) Thyroid nodule Priority: Secondary Status: Acute (4) DVT prophylaxis Priority: Secondary Status: Acute Hospital course: Ms. Castro is a 32 year old female who was admitted for right facial cellulitis with subcutaneous phlegmon. Failed outpatient therapy with bactrim. Seen in consultation with ENT, no surgical intervention warranted, and she clinically improved with IV Vanc/zosyn. Wound culture presumptively grew MRSA and she will be discharged on PO Doxycycline for a total of 7 days as well as mupirocin ointment with PCP followup. She also had incidental finding of left thyroid nodule which will need annual ultrasound. Discharge discussed with: patient, family, nurse - Time Spent with Patient Total time spent providing and/or coordinating discharge services: 31 mins - Discharge Medications Prescriptions: New DiphenhydraMINE [Benadryl] 25 mg PO Q6HR PRN 3 Days #18 capsule PRN Reason: Itching Doxycycline 100 mg PO BID 5 Days #10 capsule Mupirocin 1 gm TP TID 7 Days #1 oin.pf.florian Continue Ibuprofen [Ibu] 800 mg PO TID PRN PRN Reason: Pain Pantoprazole Sodium [Protonix] 40 mg PO DAILY carBAMazepine [Tegretol] 400 mg PO BID Sucralfate [Carafate] 10 ml PO QID PRN PRN Reason: GERD Trazodone HCl 150 mg PO HS PRN PRN Reason: Sleep Discontinued Sulfamethoxazole/Trimeth DS [Bactrim DS] 1 tab PO BID Home Medications: Ibuprofen [Ibu] 800 mg PO TID PRN 07/21/18 [History] Pantoprazole Sodium [Protonix] 40 mg PO DAILY 07/21/18 [History] Sucralfate [Carafate] 10 ml PO QID PRN 07/21/18 [History] Trazodone HCl 150 mg PO HS PRN 07/21/18 [History] carBAMazepine [Tegretol] 400 mg PO BID 07/21/18 [History] DiphenhydraMINE [Benadryl] 25 mg PO Q6HR PRN 3 Days #18 capsule 07/23/18 [Rx] Doxycycline 100 mg PO BID 5 Days #10 capsule 07/23/18 [Rx] Mupirocin 1 gm TP TID 7 Days #1 oin.pf.florian 07/23/18 [Rx] Allergies/Adverse Reactions: Allergy/AdvReac Type Severity Reaction Status Date / Time No Known Allergies Allergy Verified 07/21/18 22:44 Date of admission: 07/21/18 22:23 Primary care physician: Joselito Petit Consults: 07/22/18 18:02 Consult to ENT [CONS] Routine Consulting Provider: ENT Charleen Reason for Consult: facial cellulitis with abcess Call Completed: Yes - Constitutional Vitals: Temp Pulse Resp BP Pulse Ox 98.2 F 80 16 125/82 99 07/23/18 06:41 07/23/18 06:41 07/23/18 06:41 07/23/18 06:41 07/23/18 06:41 General appearance: Present: cooperative, mild distress, A&O X 3, pleasant, answers questions appropriately Exam: General appearance: No acute distress, A&O X 3 Skin: R side of the face near zygomatic region with induration, no fluctuance. Dressing c/d/i Respiratory exam: Clear to auscultation bilaterally Cardiovascular exam: Regular rate and rhythm, no systolic murmur Abdominal exam: Soft, nontender, nondistended, positive bowel sounds - Patient Status Disposition: Home, Self-Care Condition: Fair Functional capacity at discharge: independent ambulation Overall status at discharge: patient is progressing back to baseline - Discharge Instructions Instructions: Cellulitis (DC) Follow Up With: Joselito Petit MD [Primary Care Provider] - 07/29/18 11:30 am - Diet and Activity Activity: resume usual activities as tolerated Diet: regular diet
== END 2018-07-23 12:05 | disposition home or self-care (01) | DRG 383 ==
LOC: EMEROOARM 15:55 → 3ANU 15:55 → SUATTDRO 22:23
PROVIDERS: ADMIT Internal Medicine; ATTEND Internal Medicine